=== PATIENT | female | born 1990 | race Two or more races ===

== ENCOUNTER 2024-06-08 09:44 | Emergency (ER) | payer MEDICAID, OTHER ==
[~2024-06-08] VITALS: Ht 167.6 cm; Wt 77.3 kg
[2024-06-08 10:00] VITALS: PULSE 75; RESP 18; O2SAT 98
[2024-06-08] MEDS: LORazepam 2MG/ML-1ML VIAL ONE (10:41)
[2024-06-08] MEDS: LORazepam 2MG/ML-1ML VIAL IV ONE (10:42)
[2024-06-08] MEDS: SODIUM CHLORIDE 0.9% 1,000 ML IV ONE (10:46)
--- NOTE | 2024-06-08 11:04 | ED.PDOC ---
HPI (NEURO) HPI Comments 33 y/o F brought in by ambulance with PMHX of CVA presents to the ED for CC of seizure. Per EMS, patient was on her way to [facility] when she began to experience seizure like activity; [place]. Per patient's , patient began to experience left sided numbness/weakness since early this morning (06/08/24). 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 Patient was told that following her procedure she would experience CVA symptoms and to return to [place] if symptoms worsened. Patient denies fever, chills, body-aches, or N/V/D. Chief Complaint: Seizure Time Seen by MD: 10:45 Reviewed Notes: Nurses Notes, Laboratory Aide Notes, Medications, Allergies Information Source: Patient, Emergency Med Personnel, Spouse Mode of Arrival: EMS Severity: Moderate Headache Severity: Moderate Timing: Hours Duration: Since onset Prehospital treatment: None Seizure Quality: Twitching Weakness Location: (L) Sided Numbness Location: (R) Sided Onset: At rest Circumstances: Spontaneous Symptoms: Weakness, Numbness During: Awake History of: CVA Associated Signs and Symptoms: Headache, Weakness, Numbness Past Medical History PAST MEDICAL HISTORY: CVA Past Medical History (Other): moyamoya Surgical History: Denies all surgeries Surgical History (Other): indirect cranial bypass FOUNTAIN DISPENSER History: Denies all FOUNTAIN DISPENSER Hx Family History Family History: Unknown Social History Smoker: Non-Smoker Alcohol: Denies ETOH Use Drugs: Denies Drug Use Lives In: Home Constitutional: denies: chills, diaphoresis, fatigue, fever, malaise, sweats, weakness, others EENTM: denies: blurred vision, double vision, ear bleeding, ear discharge, ear drainage, ear pain, ear ringing, eye pain, eye redness, hearing loss, mouth pain, mouth swelling, nasal discharge, nose bleeding, nose congestion, nose pain, photophobia, tearing, throat pain, throat swelling, voice changes, others Respiratory: denies: cough, hemoptysis, orthopnea, SOB at rest, shortness of breath, SOB with excertion, stridor, wheezing, others Cardiovascular: denies: chest pain, dizzy spells, diaphoresis, Dyspnea on exertion, edema, irregular heart beat, left arm pain, lightheadedness, palpitations, PND, syncope, others Gastrointestinal: denies: abdomen distended, abdominal pain, blood streaked bowels, constipated, diarrhea, dysphagia, difficulty swallowing, hematemesis, melena, nausea, poor appetite, poor fluid intake, rectal bleeding, rectal pain, vomiting, others Genitourinary: denies: abnormal vagina bleeding, burning, dyspareunia, dysuria, flank pain, frequency, hematuria, incontinence, pain, , vagina discharge, urgency, others Neurological: reports: dizziness, headache, left sided numbness, left sided weakness, tingling, tremors Musculoskeletal: denies: back pain, gout, joint pain, joint swelling, muscle pain, muscle stiffness, neck pain, others Integumetry: denies: bruises, change in color, change in hair/nails, dryness, laceration, lesions, lumps, rash, wounds, others Allergic/Immunocompromised: denies: Difficulty Healing, Frequent Infections, Hives, Itching, others Hematologic/Lymphatic: denies: anemia, blood clots, easy bleeding, easy bruising, swollen glands, others Endocrine: denies: excessive hunger, excessive sweating, excessive thirst, excessive urination, flushing, intolerance to cold, intolerance to heat, unexplained weight gain, unexplained weight loss, others Psychiatric: denies: anxiety, bipolar disorder, depression, hopeless, panic disorder, schizophrenia, sleepless, suicidal, others All Other Systems: Reviewed and Negative Physical Exam General Appearance: Moderate Distress HEENT: Normal ENT Inspection, Pharynx Normal, TMs Normal Neck: Full Range of Motion, Non-Tender, Normal, Normal Inspection Respiratory: Chest Non-Tender, Lungs Clear, No Accessory Muscle Use, No Respiratory Distress, Normal Breath Sounds Cardiovascular: No Edema, No JVD, No Murmur, No Gallop, Normal Peripheral Pulses, Regular Rate/Rhythm Breast Exam: Deferred Gastrointestinal: No Organomegaly, Non Tender, No Pulsatile Mass, Normal Bowel Sounds, Soft Genitalia: Deferred Pelvic: Deferred Rectal: Deferred Extremities: No calf tenderness, Normal capillary refill, Normal inspection, Normal range of motion, Non-tender, No pedal edema Musculoskeletal : Apperance: Normal 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 Was a procedure done?: No Differential Diagnosis (SZ) Seizure: Psychogenic Seizure, Closed Head Injury, CVA/TIA CVA: Gallagher's Palsy, CVA General Weakness: CVA Headache: Migraine X-Ray, Labs, Meds, VS Vital Signs Date Time Temp Pulse Resp B/P (MAP) Pulse Ox O2 Delivery O2 Flow Rate FiO2 06/08/24 14:42 93 18 169/89 (115) 97 06/08/24 14:00 70 18 171/82 (111) 98 06/08/24 12:00 77 16 149/69 (95) 98 06/08/24 11:43 99 06/08/24 10:00 99.8 75 16 167/91 (116) 98 99.8 06/08/24 10:00 75 18 98 Room Air* 0 21 06/08/24 09:53 99.8 94 24 150/79 (102) 99 06/08/24 09:53 94 24 99 Nasal Cannula 2.0 Lab Test 06/08/24 13:00 06/08/24 11:02 Range/Units Urine Color Light-yellow Yellow Urine Clarity Clear Clear Urine pH 6.0 5.0-9.0 Urine Specific [place] 1.010 1.001-1.035 Urine Protein Negative Negative Urine Ketones 1+ H Negative Urine Blood Negative Negative /uL Urine Nitrite Negative Negative Urine Bilirubin Negative Negative Urine Urobilinogen Normal Negative mg/dL Urine Leukocyte Esterase Negative Negative /uL Urine RBC None seen 0 - 4 /hpf Urine Microscopic WBC 1 0-5 /HPF Urine Squamous Epithelial Cells Few <5 /hpf Urine Bacteria Few H None Seen /hpf Urine Glucose Normal Normal mg/dL White Blood Count 6.7 4.4-10.8 10^3/uL Red Blood Count 3.94 L 4.0-5.20 10^6/uL Hemoglobin 11.8 L 12.2-16.2 g/dL Hematocrit 34.9 L 36.0-46.0 % Mean Corpuscular Volume 88.5 80.0-100.0 fL Mean Corpuscular Hemoglobin 30.0 28.0-32.0 pg Mean Corpuscular Hemoglobin Concent 33.9 32.0-36.0 g/dL Red Cell Distribution Width 14.8 H 11.8-14.3 % Platelet Count 245 140-450 10^3/uL Mean Platelet Volume 9.3 6.9-10.8 fL Neutrophils (%) (Auto) 77.9 37.0-80.0 % Lymphocytes (%) (Auto) 15.6 10.0-50.0 % Monocytes (%) (Auto) 5.7 0.0-12.0 % Eosinophils (%) (Auto) 0.3 0.0-7.0 % Basophils (%) (Auto) 0.5 0.0-2.0 % Neutrophils # (Auto) 5.2 1.6-8.6 10 ^3/uL Lymphocytes # (Auto) 1.0 0.4-5.4 10 ^3/uL Monocytes # (Auto) 0.4 0-1.3 10 ^3/uL Eosinophils # (Auto) 0 0-0.8 10 ^3/uL Basophils # (Auto) 0 0-0.2 10 ^3/uL Nucleated Red Blood Cells 0.0 % Sodium Level 136 136-145 mmol/L Potassium Level 4.1 3.5-5.1 mmol/L Chloride Level 100 98-107 mmol/L Carbon Dioxide Level 27 20-31 mmol/L Anion Gap 9 5-15 Blood Urea Nitrogen 10 9-23 mg/dL Creatinine 0.54 L 0.550-1.02 mg/dL Glomerular Filtration Rate Calc 125 >90 mL/min BUN/Creatinine Ratio 18.5 10.0-20.0 Serum Glucose 119 H 74-106 mg/dL Calcium Level 10.1 8.7-10.4 mg/dL Current Medications Medications (Trade) Dose Ordered Sig/Nilsa Route Start Time Stop Time Status Last Admin Lorazepam (Ativan Inj) 1 mg ONCE ONCE IV 06/08/24 10:45 06/08/24 10:46 DC 06/08/24 10:42 Sodium Chloride 1,000 ml @ 1,000 mls/hr Q1H ONCE IV 06/08/24 10:45 06/08/24 11:44 DC 06/08/24 10:46 Patient alert. Answering all questions. Vitals stable. Moving all extremities. Establish intravenous access. Was given fluids. Was given Ativan. No sign of any seizure. She was twitching for few seconds. Recently had surgery at [facility]. She is doing well. Was given Ativan. CT scan of the head reviewed does show subdural hematoma. Explained to the family. Spoke with [facility]. [phone]. Time of 1ST Reevaluation: 11:25 Reevaluation 1ST: Unchanged Patient Education/Counseling: Diagnosis, Treatment Family Education/Counseling: Diagnosis, Treatment Departure 1 Departure Time of Disposition: 12:10 Impression: Primary Impression: Subdural hematoma Disposition: 02 SHORT TERM HOSPITAL Admit to: Med Surg Condition: Guarded Critical Care Note Critical Care Time?: Yes (90 min-critical care time only) Stability Stability form required: No Heart Score Heart Score: Heart Score Response (Comments) Value History N/A 0 EKG N/A 0 Age N/A 0 Risk Factors N/A 0 Troponin N/A 0 Total 0 I personally scribed for JESSICA PATEL MD ([email or web address]) on 06/08/24 at 11:04. Electronically submitted by Inessa Josue ([email or web address]). JESSICA PATEL MD Jun 08, 2024 11:04
[2024-06-08 11:15] LABS: Basophils # (auto) 0 10 ^3/uL (0-0.2); Basophils % (auto) 0.5 % (0.0-2.0); Eosinophils # (auto) 0 10 ^3/uL (0-0.8); Eosinophils % (auto) 0.3 % (0.0-7.0); Hematocrit 34.9 % (36.0-46.0); Hemoglobin 11.8 g/dL (12.2-16.2); Lymphocytes % (auto) 15.6 % (10.0-50.0); Mean Corpuscular Hgb Conc. 33.9 g/dL (32.0-36.0); Mean Corpuscular Volume 88.5 fL (80.0-100.0); Monocytes # (auto) 0.4 10 ^3/uL (0-1.3); Monocytes % (auto) 5.7 % (0.0-12.0); Neutrophils # (auto) 5.2 10 ^3/uL (1.6-8.6); Neutrophils % (auto) 77.9 % (37.0-80.0); Platelet Count (auto) 245 10^3/uL (140-450); Red Blood Cells 3.94 10^6/uL (4.0-5.20); Red Cell Distribution Width 14.8 % (11.8-14.3); White Blood Cell 6.7 10^3/uL (4.4-10.8)
[2024-06-08 11:26] LABS: Chloride 100 mmol/L (98-107); Potassium 4.1 mmol/L (3.5-5.1)
[2024-06-08 11:27] LABS: Anion Gap 9 (5-15); Carbon Dioxide 27 mmol/L (20-31)
[2024-06-08 11:28] LABS: Calcium 10.1 mg/dL (8.7-10.4)
[2024-06-08 11:33] LABS: BUN/Creatinine Ratio 18.5 (10.0-20.0); Blood Urea Nitrogen 10 mg/dL (9-23)
[2024-06-08 11:35] LABS: Glucose 119 mg/dL (74-106); Sodium 136 mmol/L (136-145)
--- NOTE | 2024-06-08 13:18 | DVH ---
CLINICAL INFORMATION: 33 years old, Female; seizure. Recent surgery at an outside facility. TECHNIQUE: Axial imaging was obtained through the brain without contrast. Coronal and sagittal refor matted images were obtained, reviewed, and stored. Images were reviewed in brain and bone windows. A ll CT scans at this medical facility are performed using dose modulation techniques as appropriate to a performed exam including the following: Automated exposure control was utilized; adjustment of the MA and/or KV according to patient size; and use of iterative reconstruction technique. CTDIvol = 65.35 mGy DLP = 1286.23 mGy-cm COMPARISON: None FINDINGS: There are postsurgical changes of prior right parietal craniotomy. There is extra-axial hy perdensity subjacent to the craniotomy site measuring up to 4.5 cm in AP dimension, 1.6 cm in transve rse dimension, and 5.0 cm in craniocaudal dimension, with associated mass effect on the right frontal lobe. No significant midline shift. Trace hyperdensity also noted along the right posterior convexit y adjacent to the parietal and occipital lobes. There is a small amount of pneumocephalus adjacent to the craniotomy site more anteriorly along the right lateral convexity. The ventricles and sulci ar e within normal limits in size for age. Basal cisterns are patent. Paranasal sinuses and mastoid air cells are clear. IMPRESSION: 1. Postsurgical changes of prior right parietal craniotomy. Prominent extra-axial hyperdensity subja cent to the craniotomy site, suspected acute/subacute subdural hemorrhage with smaller trace subdural hemorrhage along the posterior convexity. There is [id number]-[id number] mass effect in the right frontal lobe without significant midline shift. 2. Additional findings as detailed above. Critical findings Critical Result: Acute or subacute intracranial hemorrhage. Findings discussed with Dr. Bartolome Arora by phone, at 06/08/2024 03:09 PM [employer]LECT[employer] ENGINE[employer], and acknowled ged receipt and understanding of the findings. ..
[2024-06-08 13:33] LABS: Urine Bacteria FEW /hpf (None Seen); Urine Blood Negative /uL (Negative); Urine Clarity Clear (Clear); Urine Color Light-Yellow (Yellow); Urine Protein, UAD Negative (Negative); Urine Squamous Epithelial Cell FEW /hpf (<5); Urine Urobilinogen Normal (Negative); Urine WBC 1 /HPF (0-5)
[2024-06-08] MEDS: ONDANSETRON HCL 4 MG/2 ML VIAL IV ONE (16:34)
[2024-06-08] MEDS: MORPHINE SULFATE INJ 2 MG/ml SYRG IV ONE (16:35)
[2024-06-08 17:30] VITALS: BP 136/73; PULSE 89; RESP 16; TEMP 98.6; O2SAT 96
== END 2024-06-08 17:40 | disposition short-term general hospital (02) ==
LOC: EDBD 09:44 → ER 09:44
DX: S06.5XAA Traumatic subdural hemorrhage with loss of consciousness status unknown, initial encounter (principal); Z86.73 Personal history of transient ischemic attack (TIA), and cerebral infarction without residual deficits; Z98.890 Other specified postprocedural states; X58.XXXA Exposure to other specified factors, initial encounter; Y93.89 Activity, other specified; Y92.89 Other specified places as the place of occurrence of the external cause; Y99.8 Other external cause status
CPT/HCPCS: 36415; 70450; 80048; 81001; 85025; 96361; 96374; 96375; 99291; J2060; J2270; J2405; J7030